=== PATIENT | female | born 1980 | race Caucasian/White ===

== ENCOUNTER 2023-12-07 08:39 | Emergency (ER) | payer BC, SELFPAY ==
[2023-12-07 08:39] VITALS: BP 174/94; PULSE 75; RESP 16; TEMP 36.4; O2SAT 100; BMI 38.5
--- NOTE | 2023-12-07 08:41 | NURSING ---
NO OLD EKGS
--- NOTE | 2023-12-07 08:52 | EKG12_ITS ---
Test Reason : CP Blood Pressure : / mmHG Vent. Rate : 073 BPM Atrial Rate : 073 BPM P-R Int : 196 ms QRS Dur : 094 ms QT Int : 366 ms P-R-T Axes : 040 009 028 degrees QTc Int : 403 ms Normal sinus rhythm Normal ECG Confirmed by Arsen Summers ([id number]), editor greeting card UMANG LONG ([id number]) on 12/11/2023 10:13:39 AM Referred By: Confirmed By:Arsen Summers
--- NOTE | 2023-12-07 08:53 | EDS_ITS ---
HPI History of Present Illness Chief Complaint: Chest Pain Detail of Chief Complaint: Chest pain Informant: patient Narrative Narrative: Patient presents with chest pain that started initially about 3 days ago. Describes it as left-sided in the anterior part of the chest but radiates to her left scapula. Pain worse with movement and breathing. She can get comfortable at night and sleep but then notices it more when she is up and moving the next day. She denies nausea or vomiting. She had some reflux and she thought she was getting a GI bug last week but symptoms resolved. She had no vomiting or diarrhea at that time. No recent travel or surgery. No history of PE or DVT. Denies any leg swelling. Denies fever or cough. PFSH PFSH Allergy/AdvReac Type Severity Reaction Status Date / Time No Known Allergies Allergy Verified 12/07/23 08:40 Social History Smoking Status: Never smoker ROS ROS ED Review of Systems ROS Unobtainable: other Constitutional Constitutional ED: Reports lethargy; Denies chills, fever(s), sweats or weight loss Eyes Eyes: Denies blurry vision, change in vision or diplopia ENT ENT ED: Denies rhinorrhea or sore throat Cardiovascular Cardiovascular: Reports chest pain; Denies orthopnea or racing heartbeat Respiratory/Chest Respiratory/Chest: Reports dyspnea on exertion; Denies cough, dyspnea, orthopnea or sputum Gastrointestinal Gastrointestinal: Denies abdominal pain, diarrhea, nausea or vomiting Genitourinary Genitourinary ED: Denies dysuria, hematuria or urinary frequency Musculoskeletal Musculoskeletal: Denies arthralgias, back pain, myalgias or neck pain Integumentary Denies abscess, Abrasions or rash Neurologic Neurologic: Denies headache(s) or weakness Psychiatric Psychiatric: Denies anxiety, depression or suicidal thoughts Endocrine Endocrinology: Denies polydipsia, polyphagia or polyuria Hematologic/Lymphatic Hematologic/Lymphatic: Denies easy bleeding, easy bruising or lymphadenopathy Allergic/Immunologic Allergic/Immunologic ED: Denies mouth swelling, tongue swelling or urticaria EXAM Physical Exam Const Vital Signs: 12/07/23 08:39 12/07/23 08:39 12/07/23 08:55 Temperature 97.6 F L Temperature Source Temporal Pulse Rate 75 Respiratory Rate 16 Respiratory Effort Normal Non-Labored Blood Pressure 174/94 H Blood Pressure Mean 120 Pulse Ox 100 Oxygen Delivery Method Room Air Room Air 12/07/23 09:39 12/07/23 10:00 12/07/23 11:00 Temperature Temperature Source Pulse Rate 70 72 68 Respiratory Rate 16 18 16 Respiratory Effort Blood Pressure 148/69 H 148/69 H 153/76 H Blood Pressure Mean 95 95 101 Pulse Ox 100 99 99 Oxygen Delivery Method Room Air Room Air Room Air Positive well nourished and well developed General Appearance ED: well developed and NAD HEENT Reports TM's clear and moist mucous membranes normocephalic and atraumatic; Negative for trauma or tenderness Tympanic Membrane ED: Yes TM's clear Eyes PERRL and EOMs intact bilaterally General Eye ED: Negative for pale conjunctiva or scleral icterus Neck no lymphadenopathy, supple and no JVD General: Negative for tenderness Chest Wall inspection of chest normal and palpation of chest normal Chest: Negative for tenderness Resp normal respiratory effort and clear to auscultation bilaterally Effort and Inspection: Negative for respiratory distress or pain with movement Auscultation: Negative for rhonchi, wheezes or diminished lung sounds Cardio regular rate, regular rhythm, S1 normal heart sound, S2 normal heart sound and no murmurs Peripheral Pulses: pulses 2+ throughout GI normal to inspection, nondistended, normoactive bowel sounds, soft to palpation, non-tender, non-distended and no masses Back/Spine no CVA tenderness and no thoracic nor lumbar tenderness Extremity normal to inspection General Extremety ED: Negative for edema General Extremity: Negative for edema Neuro oriented x3, CN's II-XII intact bilaterally, no sensory deficits noted and gait normal Sensorium / Orientation: awake, alert, oriented to person, oriented to place and oriented to time Motor Exam: strength 5/5 throughout and strength abnormal Psych mental status grossly normal Skin no rashes or lesions noted and no wounds MDM MDM MDM Narrative Medical decision making narrative: Patient presents with left-sided chest pain that seems to be more pleuritic and worse with up and walking. In the differential would be acute coronary syndrome versus PE versus pleurisy or infectious etiology which I think is less likely as she has had no real cough or fever. IV line established. EKG obtained on arrival shows sinus rhythm with rate of 73 bpm with no acute ST segment changes. CBC with differential, 7.4 with hemoglobin 15 and platelet count of 330. Chemistries unremarkable. Troponin normal at 13. D-dimer elevated 1.04. CTA of the chest was obtained which was negative for PE but did show some granulomatous disease and some small pleural effusion on the left possible infiltrate. Clinically I do not feel she has pneumonia. I did discuss findings with the patient and I do not think there is any indication for an antibiotic at this point and she is in agreement and states that she gets yeast infections and side effects from antibiotic she prefer to avoid it if possible. Possible her symptoms may be related to pleurisy. Recommended ibuprofen or Aleve for discomfort. Advised to follow-up with primary care physician within next 5 to 7 days. Radiology recommended repeat CT scan in 6 months. Lab Data Attestation: I reviewed the patient's lab results. Labs: Laboratory Results - last 24 hr 12/07/23 08:45 WBC 7.4 RBC 4.89 Hgb 15.0 Hct 45.0 MCV 92.0 MCH 30.7 MCHC 33.3 RDW Std Deviation 41.8 RDW Coeff of Elvin 12.3 Plt Count 330 MPV 10.2 Immature Gran % (Auto) 0.300 Neut % (Auto) 63.2 Lymph % (Auto) 26.8 [place] % (Auto) 6.4 Eos % (Auto) 2.6 Baso % (Auto) 0.7 Absolute Neuts (auto) 4.7 Absolute Lymphs (auto) 1.97 Nucleated RBC % 0 D-Dimer Quant (PE/DVT) 1.04 H* Sodium 139 Potassium 3.8 Chloride 109 H Carbon Dioxide 28.0 Anion Gap 2 L BUN 12 Creatinine 0.79 Estim Creat Clear Calc 116.61 Est GFR (MDRD) Af Amer 103 Est GFR (MDRD) Non-Af 85 BUN/Creatinine Ratio 15.2 Glucose 95 Calcium 9.0 Troponin I High Sens 13 Radiography Diagnostic Testing: Clinical Impression(s) from Imaging Studies Chest X-Ray 12/07/23 09:12 IMPRESSION: Normal x-ray examination of the chest. Electronically Signed: Low Mcclendon MD at 9:30 EDT , Chest CTA 12/07/23 09:26 IMPRESSION: No evidence of pulmonary embolism. Small left pleural effusion with left basilar atelectasis and/or infiltrate. Scattered calcified granulomas as well as noncalcified nodules at the lung bases as described. Repeat CT scan recommended in 6 months. Electronically Signed: Low Mcclendon MD at 10:52 EDT , 1 view chest x-ray obtained interpreted by myself no evidence of infiltrate or pneumothorax or acute disease process. Radiology in agreement. EKG Initial EKG: Attestation: I personally reviewed and interpreted this EKG as follows: Comments: Sinus rhythm with rate of 75 bpm with no acute ST segment changes Discharge Plan Triage Chief Complaint: Chest Pain ED Provider: Dale Dash Dx/Rx/DC Orders Clinical Impression: Chest pain, Pleurisy Instructions: ED Chest Pain, Uncertain Cause, ED Pleurisy Primary Care Provider: Deirdre Alberts Referrals: Deirdre Alberts MD [Primary Care Provider] - 3-5 Days Print Language: Bengali Disposition Disposition: Home, Self Care
[2023-12-07] MEDS: Aspirin 81 MG TAB.CHEW 324 MG PO (09:02)
[2023-12-07 09:05] LABS: Absolute Lymphocyte Count 1.97 X10^3/uL (0.83-4.51); Absolute Neutrophil Count 4.7 X10^3/uL (2.0-7.7); Basophil# 0.05 X10^3/uL; Basophil% 0.7 % (0-1); Eosinophil# 0.19 X10^3/uL; Eosinophils% 2.6 % (0-5); Lymphocyte # 1.97 X10^3/ul (0.83-4.51); Lymphocyte % 26.8 % (19-41); Mean Corp Hgb Conc 33.3 g/dL (32-36); Mean Corpuscular Hgb 30.7 pg (27.0-32.0); Mean Platelet Vol. 10.2 fl (6.2-12.0); Monocyte# 0.47 X10^3/uL; Monocyte% 6.4 % (0-10); NRBC Flagged by Analyzer 0 % (0-5); Neutrophil # 4.65 X10^3/uL (2.7-7.7); Neutrophil % 63.2 % (47-70); Platelet Count 330 K/mm3 (150-450); RBC Distribution Width CV 12.3 % (11.6-14.6); RBC Distribution Width SD 41.8 fl (35.1-43.9); Red Blood Count 4.89 M/mm3 (4.2-5.4); White Blood Count 7.4 K/mm3 (4.4-11.0)
--- NOTE | 2023-12-07 09:12 | RAD_ITS ---
STUDY: X-RAY CHEST REASON FOR EXAM: Female, 43 years old. Chest pain TECHNIQUE: Single AP portable view of the chest. COMPARISON: None. FINDINGS: EKG electrodes are seen. The lungs are clear and expanded. There is no demonstrated pleural abnormality. Normal size heart. Normal mediastinum and vanessa. Normal visualized pulmonary arteries. Normal visualized aortic arch and descending thoracic aorta. Normal visualized thoracic spine. Normal visualized ribs, clavicles, and shoulders. There is no demonstrated abnormality of the visualized soft tissue structures of the upper abdomen. RAD/Chest 1 View (Portable) IMPRESSION: Normal x-ray examination of the chest. Electronically Signed: Low Mcclendon MD at 9:30 EDT ,
[2023-12-07 09:24] LABS: D-Dimer Quantitative (DVT/PE) 1.04 FEU/ug/m (0.27-0.49)
--- NOTE | 2023-12-07 09:26 | CT_ITS ---
STUDY: CTA CHEST REASON FOR EXAM: Female, 43 years old. Chest pain, elevated d-dimer RADIATION DOSAGE (If Supplied By Facility): CTDIvol = ( 11.33 ) mGy, DLP = ( 483.17 ) mGycm TECHNIQUE: The examination was performed with the intravenous administration of IV 100mL [id number]-[id number]. Post-processing of the angiographic images was performed, with multiplanar reformation and 3D reconstruction. Individualized dose optimization techniques were used for this CT. COMPARISON: Comparison is made with prior chest radiograph done earlier today. FINDINGS: Normal enhancement of the main pulmonary artery and right and left pulmonary arteries. Normal enhancement of the bilateral peripheral pulmonary arteries. There is no demonstrated pulmonary embolism. Normal thoracic aorta and visualized great vessels. There is no demonstrated aortic dissection. Normal heart and pericardium. Normal mediastinum. Normal hilar regions. Normal visualized trachea and bronchi. The lungs are well expanded. Scattered tiny bilateral calcified granulomas. There is a 7.2 mm noncalcified nodule in the posterior medial segment of the right lower lobe as seen on axial image #90. There is also evidence of a 4.8 mm noncalcified nodule in the posteromedial segment of the right lower lobe as seen on axial image #82. 3.8 mm noncalcified nodule in the peripheral lateral aspect of the left lower lobe axial axial image #107. Tiny left pleural effusion with left basilar atelectasis and/or infiltrates. Minimal right pleural effusion. Normal chest wall structures. Normal osseous structures. Normal visualized upper abdomen. CT/CTA Chest W/WO Contrast IMPRESSION: No evidence of pulmonary embolism. Small left pleural effusion with left basilar atelectasis and/or infiltrate. Scattered calcified granulomas as well as noncalcified nodules at the lung bases as described. Repeat CT scan recommended in 6 months. Electronically Signed: Low Mcclendon MD at 10:52 EDT ,
--- NOTE | 2023-12-07 09:29 | ED.RN ---
d-dimer 1.04. dr verdugo
[2023-12-07] MEDS: 0.9% Normal Saline (1000mL) 1,000 ML 150 ML IV (09:32)
[2023-12-07 09:39] VITALS: BP 148/69; PULSE 70; RESP 16; O2SAT 100
[2023-12-07 10:00] VITALS: BP 148/69; PULSE 72; RESP 18; O2SAT 99
[2023-12-07 10:16] LABS: Anion Gap 2 (5-15); BUN 12 mg/dL (7-18); BUN/Creat Ratio 15.2 RATIO (10-20); Chloride 109 mmol/L (98-107); Creatinine, Serum 0.79 mg/dL (0.55-1.02); EST Glomerular Filtration Rate 85 mL/min (>60); Est Glom Filt Rate - Afr Amer 103 mL/min (>60); Estimated Creatinine Clearance 116.61 ml/min; Glucose 95 mg/dL (74-106); Potassium 3.8 mmol/L (3.5-5.1); Sodium Level 139 mmol/L (136-145); Troponin-I HS (w/2H Reflex) 13 pg/mL (3.0-54.0)
[2023-12-07 10:56] LABS: Reflex Troponin-HS? (from REC) Y
[2023-12-07 11:00] VITALS: BP 153/76; PULSE 68; RESP 16; O2SAT 99
[2023-12-07 11:31] LABS: Troponin-I HS 13 pg/mL (3.0-54.0)
[2023-12-07 11:39] VITALS: BP 153/76; PULSE 67; RESP 18; TEMP 36.4; O2SAT 99
== END 2023-12-07 11:48 | disposition home or self-care (01) ==
PROVIDERS: Emergency Provider Emergency Medicine; PCP Internal Medicine; Visit Provider Emergency Medicine
DX: R07.9 Chest pain, unspecified (principal); D71 Functional disorders of polymorphonuclear neutrophils; R09.1 Pleurisy; R06.09 Other forms of dyspnea
CPT/HCPCS: 71045; 71275; 80048; 84484; 85025; 85379; 93005; 96360; 96361; 99284; J7030; Q9967; A4216